=== PATIENT | male | born 1970 | race Caucasian/White ===

== ENCOUNTER 2023-05-06 09:18 | Emergency (ER) | payer BC, MEDICAID, OTHER ==
[2023-05-06] MEDS ORDERED: Lidocaine 4% 1 each Patch TOP STA (09:55)
[2023-05-06] MEDS ORDERED: Amoxicillin/Clavulanate K 875-125 MG Tab PO ONE (09:55)
== END 2023-05-06 11:46 | disposition home or self-care (01) ==
LOC: MW.ED 09:18
DX: S06.0X0A Concussion without loss of consciousness, initial encounter (principal); M25.511 Pain in right shoulder; Z79.899 Other long term (current) drug therapy; Z79.84 Long term (current) use of oral hypoglycemic drugs; Y04.0XXA Assault by unarmed brawl or fight, initial encounter
CPT/HCPCS: 70450; 72125; 73030; 99284; A9270